=== PATIENT | female | born 1995 | race Two or more races ===

== ENCOUNTER 2016-10-13 14:32 | Emergency (ER) | payer OTHER ==
--- NOTE | 2016-10-13 14:40 | ER Document Report ---
ED Medical Screen (RME) - General Stated Complaint: FALL,ABDOMINAL PAIN Time seen by provider: 14:37 Mode of Arrival: Ambulatory Information source: Patient Notes: 21-year-old female presents to ED for abdominal galvan and right elbow pain after falling in the shower landing with abdomen across the tub. she is 3 months . Last menstrual period 07/22/2016 I have greeted and performed a rapid initial assessment of this patient. A comprehensive ED assessment and evaluation of the patient, analysis of test results and completion of medical decision making process will be conducted by an additional ED providers. - HPI Quality of pain: Cramping
--- NOTE | 2016-10-13 15:07 | ER Document Report ---
ED General - General Chief Complaint: Abdominal Pain Stated Complaint: FALL,ABDOMINAL PAIN Mode of Arrival: Ambulatory Notes: 21-year-old female here with complaints of abdominal pain that started several hours ago after she slipped and fell in the shower. She states that she is approximately 3 months . She endorses falling onto her left side with no loss of consciousness but denies pain on that left side. She denies any vaginal bleeding discharge nausea vomiting. TRAVEL OUTSIDE OF THE [place] IN LAST 30 DAYS: No - Related Data Allergies/Adverse Reactions: No Known Allergies Allergy (Verified 10/13/16 14:43) Past Medical History - General Information source: Patient - Social History Smoking Status: Former Smoker Chew tobacco use (# tins/day): No Frequency of alcohol use: None Drug Abuse: None Family History: Reviewed & Not Pertinent Patient has suicidal ideation: No Patient has homicidal ideation: No Renal/ Medical History: Denies: Hx Peritoneal Dialysis Review of Systems - Review of Systems Notes: See history of present illness for pertinent positive review of systems; otherwise all review of systems have been reviewed and are negative Physical Exam - Vital signs Vitals: Temp Pulse Resp BP Pulse Ox 98.0 F 101 H 14 112/68 100 10/13/16 14:37 10/13/16 14:37 10/13/16 14:37 10/13/16 14:37 10/13/16 14:37 - Notes Notes: PHYSICAL EXAMINATION: GENERAL: Well-appearing and in no acute distress. HEAD: Atraumatic, normocephalic. EYES: Pupils equal round and reactive to light, extraocular movements intact, sclera anicteric, conjunctiva are normal. ENT: nares patent, oropharynx clear without exudates. Moist mucous membranes. NECK: Normal range of motion, supple without lymphadenopathy LUNGS: CTAB and equal. No wheezes rales or rhonchi. HEART: Regular rate and rhythm without murmurs ABDOMEN: Soft, minimal to mild diffuse tenderness, no peritoneal signs. No guarding, no rebound EXTREMITIES: Normal range of motion, no pitting edema. No cyanosis. NEUROLOGICAL: Cranial nerves grossly intact. Normal sensory/motor exams. PSYCH: Normal mood, normal affect. SKIN: Warm, Dry, normal turgor, no rashes or lesions noted Course - Re-evaluation Re-evalutation: 10/13/16 15:19 MEDICAL DECISION MAKING: Concern for miscarriage versus subchorionic hemorrhage versus muscle strain Bedside ultrasound performed and heart rate is visualized in the 130s Do not feel that work is needed at this time Patient asking for a dose of Tylenol so we will give this She has an appointment tomorrow per her report with [facility]PRENT[facility] Patient understands and agrees to the plan of care - Vital Signs Vital signs: Temp Pulse Resp BP Pulse Ox 98.0 F 101 H 14 112/68 100 10/13/16 14:37 10/13/16 14:37 10/13/16 14:37 10/13/16 14:37 10/13/16 14:37 - Laboratory Result Diagrams: 10/13/16 14:45 10/13/16 14:45 Laboratory results interpreted by me: 10/13/16 10/13/16 14:45 14:45 WBC 13.5 H Seg Neutrophils % 81.7 H Lymphocytes % 11.9 L Absolute Neutrophils 11.1 H Urine Protein 30 H Urine Ketones TRACE H Ur Leukocyte Esterase LARGE H Urine Ascorbic Acid 40 H Discharge - Discharge Clinical Impression: Accidental fall Qualifiers: Encounter type: initial encounter Qualified Code(s): W19.XXXA - Unspecified fall, initial encounter Condition: Good Disposition: HOME, SELF-CARE Additional Instructions: You were seen in the emergency department at [facility]. Your bedside ultrasound showed movement and heart rate activity in the 130s. Use Tylenol for pain as needed. Please followup with your primary physician or [facility]PRENT[facility] in the next few days for further management/evaluation. Please return to the emergency department for worsening of symptoms or any symptom that you deem to be concerning or life-threatening. Thank you for allowing us to be part of your care.
[2016-10-13 15:12] LABS: APPEARANCE,URINE SLIGHTLY-CLOUDY; BILIRUBIN,URINE NEGATIVE (NEGATIVE); GLUCOSE, URINE NEGATIVE (NEGATIVE); KETONES,URINE TRACE mg/dL (NEGATIVE); LEUKOCYTE ESTERASE,URINE LARGE (NEGATIVE); NITRITE,URINE NEGATIVE (NEGATIVE); PROTEIN,URINE 30 mg/dL (NEGATIVE); URINE SPECIFIC GRAVITY 1.024; UROBILINOGEN,URINE NEGATIVE mg/dL (<2.0)
[2016-10-13 15:13] LABS: ABSOLUTE LYMPHOCYTES (AUTO) 1.6 10^3/uL (0.5-4.7); ABSOLUTE MONOCYTES (AUTO) 0.8 10^3/uL (0.1-1.4); ABSOLUTE NEUT (AUTO) 11.1 10^3/uL (1.7-8.2); BASOPHILS % (AUTO) 0.2 % (0-2); EOSINOPHILS % (AUTO) 0.3 % (0-6); HEMOGLOBIN 12.9 g/dL (12.0-15.5); HGB HCT DIFFERENCE -1.3; LYMPHOCYTES % (AUTO) 11.9 % (13-45); MEAN CORPUSCULAR HEMOGLOBIN 31.2 pg (27.0-33.4); MEAN CORPUSCULAR HGB CONC 32.3 g/dL (32.0-36.0); MEAN CORPUSCULAR VOLUME 96 fl (80-97); MONOCYTES % (AUTO) 5.9 % (3-13); RED BLOOD COUNT 4.15 10^6/uL (3.72-5.28); RED CELL DISTRIBUTION WIDTH 12.5 % (11.5-14.0); SEGMENTED NEUTROPHILS % (AUTO) 81.7 % (42-78); WHITE BLOOD COUNT 13.5 10^3/uL (4.0-10.5)
[2016-10-13] MEDS ORDERED: ACETAMINOPHEN 325 MG TABLET PO ONE (15:21)
[2016-10-13 16:02] VITALS: BP 115/62
== END 2016-10-13 15:39 | disposition home or self-care (01) ==
LOC: ER 14:32
DX: O26.91 Pregnancy related conditions, unspecified, first trimester (principal); R10.9 Unspecified abdominal pain; W18.2XXA Fall in (into) shower or empty bathtub, initial encounter; Z3A.12 12 weeks gestation of pregnancy
CPT/HCPCS: 36415; 81001; 85025; 99284